=== PATIENT | female | born 1965 | race Caucasian/White ===

== ENCOUNTER → 2017-06-10 | Outpatient (CLI) | payer OTHER ==
--- NOTE | 2017-06-10 14:58 | RADIOLOGY IMAGING REPORT ---
FACILITY: [facility] - [place] PATIENT NAME: Jada Gupta : 1965 MR: [id number] V: [id number] EXAM DATE: ORDERING PHYSICIAN: WILLIAM SOMMER TECHNOLOGIST: Location: [facility] Patient: Jada Gupta : 1965 Visit/Account:[id number] Date of Sevice: 06/10/2017 Exam type: CERVICAL SPINE 2 OR 3 VIEW History: Pain and lower neck/upper back Comparison: None Findings: There is straightening of the normal cervical lordosis with actual mild kyphosis centered about C3-4. There is moderate disc space narrowing and posterior spurring at C4-5 and C5-6. There is no eviden ce of prevertebral soft tissue swelling IMPRESSION: 1. Moderate spondylotic changes C4-5 and C5-6. If patient's pain continues MR may be helpful Report Dictated By: Char Sanchez MD at 06/10/2017 2:52 PM Report E-Signed By: Char Sanchez MD at 06/10/2017 2:54 PM WSN:[email or web address]
--- NOTE | 2017-06-10 14:59 | RADIOLOGY IMAGING REPORT ---
FACILITY: [facility] [place] PATIENT NAME: Jada Gupta : 1965 MR: [id number] V: [id number] EXAM DATE: ORDERING PHYSICIAN: WILLIAM SOMMER TECHNOLOGIST: Location: [facility] [place] Patient: Jada Gupta : 1965 Visit/Account:[id number] Date of Sevice: 06/10/2017 Exam type: THORACIC SPINE 3 VIEWS History: Pain and lower neck and upper back Comparison: None. Findings: There is a minimal dextroconvex curvature to the midthoracic spine. There is no evidence of acute fr actures or subluxations. There is mild disc space narrowing and small anterior osteophytes at gertrudis us levels throughout the mid to lower thoracic spine IMPRESSION: 1. Mild spondylotic changes throughout the mid to lower thoracic spine Report Dictated By: Char Sanchez MD at 06/10/2017 2:54 PM Report E-Signed By: Char Sanchez MD at 06/10/2017 2:55 PM WSN:[email or web address]
== END ==
LOC: RAD 13:19
PROVIDERS: ATTEND Chiropractor
DX: M47.812 Spondylosis without myelopathy or radiculopathy, cervical region (principal); M47.894 Other spondylosis, thoracic region
CPT/HCPCS: 72040; 72072